=== PATIENT | female | born 1965 | race Asian ===

== ENCOUNTER 2017-08-26 16:35 | Emergency (ER) | payer MEDICARE, OTHER | END 2017-08-26 20:35 | disposition home or self-care (01) | LOC: FTE 16:35 | DX: S06.0X0A Concussion without loss of consciousness, initial encounter (principal); I10 Essential (primary) hypertension; E11.9 Type 2 diabetes mellitus without complications; W01.0XXA Fall on same level from slipping, tripping and stumbling without subsequent striking against object, initial encounter; Y92.9 Unspecified place or not applicable | CPT/HCPCS: 70450; 99284-25 ==

== ENCOUNTER 2017-10-15 00:59 | Emergency (ER) | payer MEDICARE, OTHER ==
[2017-10-15 02:51] LABS: ADD MAN DIFF? NO
[2017-10-15 02:54] LABS: WHITE BLOOD COUNT 9.1 10^3/ul (4.8-10.8)
[2017-10-15 02:54] LABS: BASOPHIL # 0.1 10^3/ul (0.0-0.1); BASOPHILS % 0.7 % (0.0-2.0); EOSINOPHILS # 0.2 10^3/ul (0.0-0.5); EOSINOPHILS % 2.6 % (0.0-7.0); HEMATOCRIT 42.2 % (37.0-47.0); LYMPHOCYTES % 43.4 % (15.0-51.0); MEAN CORPUSCULAR HEMOGLOBIN 29.6 pg (29.0-33.0); MEAN CORPUSCULAR HGB CONC 33.2 g/dl (32.0-37.0); MEAN CORPUSCULAR VOLUME 89.2 fl (82.0-101.0); MEAN PLATELET VOLUME 10.5 fl (7.4-10.4); MONOCYTE # 0.8 10^3/ul (0.3-0.9); MONOCYTES % 8.2 % (0.0-11.0); NEUTROPHIL # 4.1 10^3/ul (1.6-7.5); NEUTROPHILS % 44.8 % (39.0-77.0); PLATELET COUNT 218 10^3/UL (140-415); RED BLOOD COUNT 4.73 10^6/ul (4.20-5.40); RED CELL DISTRIBUTION WIDTH 13.5 % (11.5-14.5)
[2017-10-15 03:13] LABS: INR 0.89; PROTIME 12.1 Sec (11.9-14.9); PT RATIO 0.9
[2017-10-15 03:14] LABS: PARTIAL THROMBOPLASTIN TIME 30.3 Sec (25.0-35.0)
[2017-10-15 03:15] LABS: ALANINE AMINOTRANSFERASE 118 IU/L (13-69); ALBUMIN 4.4 g/dl (3.3-4.9); ALBUMIN/GLOBULIN RATIO 1.04; ALKALINE PHOSPHATASE 112 IU/L (42-121); ANION GAP 15 (8-16); ASPARTATE AMINO TRANSFERASE 62 IU/L (15-46); BILIRUBIN,INDIRECT 0.3 mg/dl (0-1.1); BILIRUBIN,TOTAL 0.3 mg/dl (0.2-1.3); BLOOD UREA NITROGEN 12 mg/dl (7-20); CALCIUM 9.3 mg/dl (8.4-10.2); CARBON DIOXIDE 26 mmol/L (21-31); CHLORIDE 106 mmol/L (97-110); CREATININE 0.57 mg/dl (0.44-1.00); GLUCOSE 182 mg/dl (70-220); LIPASE 158 U/L (23-300); SODIUM 143 mmol/L (135-144); TOTAL PROTEIN 8.6 g/dl (6.1-8.1)
[2017-10-15 03:26] LABS: B-TYPE NATRIURETIC PEPTIDE 19 PG/ML (0-125); TROPONIN-I < 0.012 ng/ml (0.000-0.120)
== END 2017-10-15 07:12 | disposition home or self-care (01) ==
LOC: E/R 00:59
DX: F41.9 Anxiety disorder, unspecified (principal); K76.0 Fatty (change of) liver, not elsewhere classified; R74.0 Nonspecific elevation of levels of transaminase and lactic acid dehydrogenase [LDH]; I10 Essential (primary) hypertension; E11.9 Type 2 diabetes mellitus without complications; Z79.4 Long term (current) use of insulin
CPT/HCPCS: 36415; 71045; 76705; 80053; 83690; 83880; 84484; 85025; 85610; 85730; 93005; 99285-25

== ENCOUNTER 2017-11-09 12:54 | Emergency (ER) | payer MEDICARE, OTHER ==
[2017-11-09 14:03] LABS: URINE BLOOD (Dip) POC Negative (NEGATIVE); URINE KETONES (Dip) POC Negative (NEGATIVE); URINE LEUKOCYTE EST (Dip) POC Negative (NEGATIVE); URINE NITRITE (Dip) POC Negative (NEGATIVE); URINE TOTAL PROTEIN POC Negative (NEGATIVE)
[2017-11-09] MEDS: NYSTATIN/TRIAMCINOLONE 15 GM CR TOP (14:53)
== END 2017-11-09 14:58 | disposition home or self-care (01) ==
LOC: FTE 12:54
DX: B37.3 Candidiasis of vulva and vagina (principal); I10 Essential (primary) hypertension; E11.9 Type 2 diabetes mellitus without complications; Z79.4 Long term (current) use of insulin; Z86.011 Personal history of benign neoplasm of the brain
CPT/HCPCS: 81003; 99283

== ENCOUNTER 2017-12-14 02:48 | Emergency (ER) | payer MEDICARE, OTHER ==
[2017-12-14] MEDS: SOD CHLORIDE 0.9% 1,000 ML IV (03:30)
[2017-12-14 03:32] LABS: MODE ROOM AIR; MetHgb Venous 0.2 %; Sample Type Blood venous; Site VENOUS LINE; Venous COHb 0.7 %; Venous Fraction OxyHgb 88.9 %; Venous Oxygen Sat 89.7 mmHG (55.0-75.0); Venous Total Hemglobin 14.4 g/dl
[2017-12-14 03:37] LABS: ADD MAN DIFF? NO
[2017-12-14 03:39] LABS: WHITE BLOOD COUNT 9.8 10^3/ul (4.8-10.8)
[2017-12-14 03:39] LABS: BASOPHIL # 0.1 10^3/ul (0.0-0.1); BASOPHILS % 0.8 % (0.0-2.0); EOSINOPHILS # 0.3 10^3/ul (0.0-0.5); EOSINOPHILS % 3.1 % (0.0-7.0); HEMATOCRIT 38.8 % (37.0-47.0); HEMOGLOBIN 13.3 g/dl (12.0-16.0); LYMPHOCYTES # 4.1 10^3/ul (0.8-2.9); LYMPHOCYTES % 41.9 % (15.0-51.0); MEAN CORPUSCULAR HEMOGLOBIN 29.9 pg (29.0-33.0); MEAN CORPUSCULAR HGB CONC 34.3 g/dl (32.0-37.0); MEAN CORPUSCULAR VOLUME 87.2 fl (82.0-101.0); MEAN PLATELET VOLUME 9.2 fl (7.4-10.4); MONOCYTE # 0.8 10^3/ul (0.3-0.9); MONOCYTES % 7.7 % (0.0-11.0); NEUTROPHIL # 4.5 10^3/ul (1.6-7.5); NEUTROPHILS % 46.2 % (39.0-77.0); PLATELET COUNT 248 10^3/UL (140-415); RED BLOOD COUNT 4.45 10^6/ul (4.20-5.40); RED CELL DISTRIBUTION WIDTH 12.8 % (11.5-14.5)
[2017-12-14 03:42] LABS: ADD UMIC NO; UR ASCORBIC ACID NEGATIVE (NEGATIVE); UR BILIRUBIN (Dip) NEGATIVE (NEGATIVE); UR BLOOD (Dip) NEGATIVE (NEGATIVE); UR CLARITY CLEAR (CLEAR); UR COLOR COLORLESS (YELLOW); UR GLUCOSE (Dip) 3+ mg/dL (NEGATIVE); UR KETONES (Dip) NEGATIVE (NEGATIVE); UR LEUKOCYTE ESTERASE (Dip) NEGATIVE Leu/ul (NEGATIVE); UR NITRITE (Dip) NEGATIVE (NEGATIVE); UR SPECIFIC GRAVITY (Dip) 1.001 (1.003-1.030); UR TOTAL PROTEIN (Dip) NEGATIVE (NEGATIVE); UR UROBILINOGEN (Dip) NEGATIVE (NEGATIVE)
[2017-12-14 04:03] LABS: ANION GAP 13 (5-13); BLOOD UREA NITROGEN 14 mg/dl (7-20); CALCIUM 9.4 mg/dl (8.4-10.2); CARBON DIOXIDE 25 mmol/L (21-31); CHLORIDE 103 mmol/L (97-110); CREATININE 0.53 mg/dl (0.44-1.00); Estimated GFR > 60 mL/min (>60); GLUCOSE 261 mg/dl (70-220); MAGNESIUM 1.5 mg/dl (1.7-2.5); PHOSPHORUS 3.7 mg/dl (2.5-4.9); POTASSIUM 3.9 mmol/L (3.5-5.1); SODIUM 141 mmol/L (135-144)
== END 2017-12-14 04:32 | disposition home or self-care (01) ==
LOC: E/R 02:48
DX: E11.65 Type 2 diabetes mellitus with hyperglycemia (principal); J06.9 Acute upper respiratory infection, unspecified; I10 Essential (primary) hypertension; Z79.4 Long term (current) use of insulin
CPT/HCPCS: 36415; 80048; 81003; 82803; 82962; 83735; 84100; 85025; 96360; 99284-25

== ENCOUNTER 2018-07-29 22:37 | Emergency (ER) | payer OTHER, MEDICAID, MEDICARE ==
[2018-07-29 23:52] LABS: ADD MAN DIFF? NO; BASOPHIL # 0.1 10^3/ul (0.0-0.1); BASOPHILS % 0.8 % (0.0-2.0); EOSINOPHILS # 0.4 10^3/ul (0.0-0.5); HEMOGLOBIN 13.1 g/dl (12.0-16.0); LYMPHOCYTES # 4.2 10^3/ul (0.8-2.9); LYMPHOCYTES % 41.5 % (15.0-51.0); MEAN CORPUSCULAR HEMOGLOBIN 29.9 pg (29.0-33.0); MEAN CORPUSCULAR HGB CONC 33.6 g/dl (32.0-37.0); MONOCYTE # 0.7 10^3/ul (0.3-0.9); MONOCYTES % 7.4 % (0.0-11.0); NEUTROPHIL # 4.6 10^3/ul (1.6-7.5); NEUTROPHILS % 45.9 % (39.0-77.0); PLATELET COUNT 232 10^3/UL (140-415); RED BLOOD COUNT 4.38 10^6/ul (4.20-5.40); RED CELL DISTRIBUTION WIDTH 13.1 % (11.5-14.5)
[2018-07-30 00:17] LABS: ALANINE AMINOTRANSFERASE 155 IU/L (13-69); ALBUMIN 4.4 g/dl (3.3-4.9); ALBUMIN/GLOBULIN RATIO 1.07; ALKALINE PHOSPHATASE 105 IU/L (42-121); ANION GAP 14 (5-13); ASPARTATE AMINO TRANSFERASE 88 IU/L (15-46); BILIRUBIN,INDIRECT 0.4 mg/dl (0-1.1); BILIRUBIN,TOTAL 0.4 mg/dl (0.2-1.3); BLOOD UREA NITROGEN 11 mg/dl (7-20); CALCIUM 9.6 mg/dl (8.4-10.2); CARBON DIOXIDE 26 mmol/L (21-31); CHLORIDE 100 mmol/L (97-110); CREATININE 0.52 mg/dl (0.44-1.00); Estimated GFR > 60 mL/min (>60); GLUCOSE 343 mg/dl (70-220); POTASSIUM 3.8 mmol/L (3.5-5.1); SODIUM 140 mmol/L (135-144); TOTAL PROTEIN 8.5 g/dl (6.1-8.1)
[2018-07-30 01:13] LABS: B-TYPE NATRIURETIC PEPTIDE 24 PG/ML (0-125); TROPONIN-I < 0.012 ng/ml (0.000-0.120)
[2018-07-30] MEDS: ACCU-CHEK XX (01:15)
[2018-07-30] MEDS: INSULIN LISPRO 100 UNIT/ML VIAL SC (01:18)
== END 2018-07-30 02:15 | disposition home or self-care (01) ==
LOC: E/R 22:37
DX: R53.83 Other fatigue (principal); I10 Essential (primary) hypertension; E11.9 Type 2 diabetes mellitus without complications; Z79.4 Long term (current) use of insulin
CPT/HCPCS: 36415; 71045; 80053; 82962; 83880; 84484; 85025; 93005; 96372; 99285-25